=== PATIENT | female | born 1980 | race Caucasian/White ===

== ENCOUNTER 2017-10-11 10:10 | Emergency (ER) | payer MEDICAID, SELFPAY | END 2017-10-11 11:01 | disposition home or self-care (01) | LOC: ERS 10:10 | DX: H65.92 Unspecified nonsuppurative otitis media, left ear (principal) | CPT/HCPCS: 99282 ==

== ENCOUNTER 2018-05-15 13:36 | Outpatient (CLI) | payer OTHER | END 2018-05-15 13:37 | disposition home or self-care (01) | LOC: BICULT 13:36 | PROVIDERS: ATTEND Family Medicine | DX: O09.522 Supervision of elderly multigravida, second trimester (principal); Z3A.20 20 weeks gestation of pregnancy | CPT/HCPCS: 76805 ==

== ENCOUNTER 2018-08-21 07:22 | Outpatient (CLI) | payer OTHER ==
--- NOTE | 2018-08-21 09:13 | ULT ---
FOLLOWUP OB ULTRASOUND: HISTORY: Followup ultrasound to get nose and lips not seen on prior exam of 05/15/2018. FINDINGS: A single live intrauterine gestation is seen with measurements corresponding to an estimated gestatio nal age of 35 weeks 2 days and ARTHUR at 10/05/2018. The estimated weight measures 2549 gm (5 michael nds 10 ounces). measurements are as follows. BPD 8.74 cm, 35 weeks 3 days HC 32.75 cm, 37 weeks 2 days AC 31.47 cm, 35 weeks 3 days FL 6.38 cm, 33 weeks 0 days The heart rate measures 147 b.p.m. ZEN measures 16.8 cm. Placenta is posterior fundal without placenta previa. The lips and nose are visualized and appear normal. No significant abnormalities are seen. IMPRESSION: Single live intrauterine of 35 weeks 2 days, estimated gestational age and estimated date o f delivery at 10/05/2018. POS: [facility]
== END 2018-08-21 07:23 | disposition home or self-care (01) ==
LOC: BICULT 07:22
PROVIDERS: ATTEND Family Medicine
DX: O09.893 Supervision of other high risk pregnancies, third trimester (principal); Z3A.35 35 weeks gestation of pregnancy
CPT/HCPCS: 76816

== ENCOUNTER 2018-09-20 07:07 | Day surgery (SDC) | payer OTHER ==
[2018-09-20 07:40] VITALS: BP 112/78; TEMP 98.3; BMI 43.4
[2018-09-20 08:05] LABS: Amnisure Test No Membranes Rupture (No Rupture)
[2018-09-20 08:08] LABS: Amnisure Internal Control QC ACCEPTABLE (ACCEPTABLE)
--- NOTE | 2018-09-21 05:29 | PRG ---
DATE OF SERVICE: 09/20/2018 OB ER ENCOUNTER PRIMARY CLERK SPECIALIST: Dr. León Al. CHIEF COMPLAINT: Leakage of fluid. HISTORY OF PRESENT ILLNESS: The patient is a 37-year-old, G5, P4 female with an intrauterine at 38 weeks and a day, who is presenting today with a gush of fluid about 2.5 hours prior to presentation. The patient reports it was enough to soak her underclothes and pajamas. The patient denies any persistent leakage of fluid. She denies vaginal bleeding. She denies contractions. The patient is scheduled for repeat on the 27 of September. She did ask about the possibility of having a trial of labor after section. PAST MEDICAL HISTORY: Negative. PAST SURGICAL HISTORY: She has had one prior for breech presentation. MEDICATIONS: vitamins and Nexium. ALLERGIES: NO KNOWN DRUG ALLERGIES. SOCIAL HISTORY: Denies drug, alcohol, or tobacco use. OB HISTORY: She has had three prior term vaginal deliveries. LABORATORY DATA: OB labs; blood type is O positive. Antibody screen is negative. RPR is nonreactive. HIV is nonreactive. Hepatitis B surface antigen is negative. She is rubella immune. GC and chlamydia were negative. REVIEW OF SYSTEMS: Per HPI. PHYSICAL EXAMINATION: VITAL SIGNS: Blood pressure is 112/78, respiratory rate of 18, pulse of 90, and temperature 98.3. GENERAL: She appears to be in no acute distress. She is alert, oriented, cooperative, and pleasant to interact with. HEENT: Head is normocephalic and atraumatic. LUNGS: Clear to auscultation bilaterally. HEART: Regular rate and rhythm. ABDOMEN: Soft, gravid, and nontender. EXTREMITIES: Nontender with minimal edema. : Vulva is without masses, lesions, or erythema. On speculum exam, there is very little discharge present there is visible, though she does have a granular appearing discharge up closer by the cervix is visibly closed. On Valsalva, there is no evidence of leakage of fluid. heart tracing demonstrated a baseline in the 140s with moderate long-term variability, positive 15 x 15 accelerations, no decelerations. Tocometer does not show any regular contraction pattern. AmniSure test is negative. Bedside ultrasound demonstrated an ZEN of about 8.5 with a 4 cm single pocket. ASSESSMENT AND PLAN: The patient is a 37-year-old, G5, P4, female with an intrauterine at 38 weeks, who is presenting for leakage of fluid. There is no evidence of rupture of membranes at this time based on negative AmniSure test. No physical findings of persistent leakage of fluid and a normal ZEN. The patient did express interest in a trial of labor after . We did share with her the risks and benefits to a trial of labor after and shared with her that she is a good candidate to attempt this, but that she needed to have a conversation with her primary physician, Dr. Al. Again, we have provided with her a consent form to review and to take this information to her doctor for continued counseling. The patient does have an appointment with her primary OB tomorrow, but believes it is going to be with the nurse practitioner. Fetus has a reactive NST and category 1 tracing. Job ID: [id number] MTDD
== END 2018-09-20 09:17 | disposition home or self-care (01) ==
LOC: L&D/OP 07:07
PROVIDERS: ATTEND Family Medicine
DX: O99.89 Other specified diseases and conditions complicating pregnancy, childbirth and the puerperium (principal); N89.8 Other specified noninflammatory disorders of vagina; Z3A.38 38 weeks gestation of pregnancy; Z79.899 Other long term (current) drug therapy
CPT/HCPCS: 76815; 84112; 99284

== ENCOUNTER 2018-09-27 10:02 | Inpatient (IN) | payer MEDICAID, OTHER, SELFPAY ==
[2018-09-27] MEDS ORDERED: Lactated Ringer's 1,000 ML IV SCH (10:47)
[2018-09-27] MEDS ORDERED: Bicitra 30 ML UDCUP PO SCH (10:47)
[2018-09-27] MEDS ORDERED: Promethazine HCl 25 MG/ML VIAL IM PRN ×2 (10:47→12:43)
[2018-09-27] MEDS ORDERED: Ondansetron PF 4 MG/2 ML Vial IVP PRN ×3 (10:47→15:43)
[2018-09-27] MEDS ORDERED: CEFAZOLIN/Water 2 GM/20 ML SYRINGE SLOW IVP SCH (10:47)
[2018-09-27 11:09] LABS: Hemoglobin 12.3 g/dL (12.0-16.0); Mean Corpuscular HGB CONC 33.6 g/dL (32.0-36.0); Mean Corpuscular Hemoglobin 27.9 pg (27.0-31.0); Mean Platelet Volume 9.1 fL (7.4-10.4); Platelet Count 244 thou/uL (130-400); Red Blood Cell (RBC) Count 4.43 mill/uL (4.20-5.40); White Blood Cell (WBC) Count 6.8 thou/uL (4.8-10.8)
[2018-09-27] MEDS ORDERED: CEFAZOLIN 2 GM/50 ML BAG IVPB SCH (11:15)
[2018-09-27 11:17] VITALS: BMI 44.2
[2018-09-27] MEDS ORDERED: Fentanyl 100 MCG/2 ML VIAL ONE (11:33)
[2018-09-27] MEDS ORDERED: Morphine PF 1 MG/ML SYR ONE (11:33)
[2018-09-27] MEDS ORDERED: Ondansetron PF 4 MG/2 ML Vial ONE (11:33)
[2018-09-27] MEDS ORDERED: Ketorolac Tromethamine 30 MG/ML VIAL ONE (11:33)
[2018-09-27] MEDS ORDERED: Oxytocin 10 UNITS/ML VIAL ONE (11:33)
[2018-09-27 11:47] LABS: HBSAg Index 0.25 S/CO (0-0.99); Hep B Surf Ag Non-Reactive S/CO (NonReactive)
[2018-09-27 11:48] LABS: Syphilis Antibody Nonreactive (Nonreactive); Syphilis Antibody Index 0.03 S/CO (<1.00 Non-Reactive)
[2018-09-27] MEDS ORDERED: ePHEDrine/0.9% NaCl/PF SYRINGE 50 mg/10 ml ONE (12:12)
[2018-09-27] MEDS ORDERED: Naloxone HCl 0.4 mg/ml Vial IV PRN (12:43)
[2018-09-27] MEDS ORDERED: Eucerin (Mineral Oil/Petrolatum,White) 30 gm Jar TOP PRN (12:43)
[2018-09-27] MEDS ORDERED: Meperidine HCl/PF 25 MG/ML VIAL SLOW IVP PRN (12:43)
[2018-09-27] MEDS ORDERED: Promethazine HCl 25 MG SUPP PR PRN (12:43)
[2018-09-27] MEDS ORDERED: Naloxone HCl 0.4 mg/ml Vial IVP PRN ×2 (12:43)
[2018-09-27] MEDS ORDERED: HYDROmorphone 2 MG/ML VIAL SLOW IVP PRN (12:43)
[2018-09-27] MEDS ORDERED: diphenhydrAMINE 50 MG/ML VIAL IVP PRN (12:43)
[2018-09-27] MEDS ORDERED: Ondansetron HCl/PF 4 MG/2 ML Vial IVP PRN (12:43)
[2018-09-27] MEDS ORDERED: L&D-Morphine 4 MG/ML VIAL SLOW IVP PRN (12:43)
[2018-09-27] MEDS ORDERED: Communication Order-Pharmacy FS SCH (12:45)
[2018-09-27] MEDS ORDERED: Meperidine HCl/PF 25 MG/ML VIAL ONE (14:29)
[2018-09-27] MEDS ORDERED: Meperidine HCl/PF 25 MG/ML VIAL IM PRN (15:43)
[2018-09-27] MEDS ORDERED: NS / Oxytocin 40 units/1000ml 1,000 ML IV SCH (15:43)
[2018-09-27] MEDS ORDERED: Bisacodyl 10 MG SUPP PR PRN (15:43)
[2018-09-27] MEDS ORDERED: Lanolin Ointment 7 GM TUBE TOP PRN (15:43)
--- NOTE | 2018-09-27 16:51 | OP ---
DATE OF PROCEDURE: 09/27/2018 RESIDENT SURGEON: Med Tiwari DO. ATTENDING SURGEON: León Al MD. PROCEDURE PERFORMED: Repeat low-transverse section. PREOPERATIVE DIAGNOSES: 1. Term intrauterine . 2. Previous section. 3. Morbid obesity. POSTOPERATIVE DIAGNOSES: 1. Term intrauterine , delivered. 2. Status post repeat low-transverse section. 3. Morbid obesity. ANESTHESIA: Spinal. INDICATIONS FOR PROCEDURE: The patient is a 37-year-old G5, P4, now 5 female at 39 and 2 week's gestation, who presents for repeat scheduled C section. PROCEDURE IN DETAIL: After risks, benefits, and alternatives were explained to the patient, she gave informed consent. Preoperative antibiotics included 2 g of Ancef IV. The patient was taken to the operating room and spinal anesthesia was initiated. She was placed in the supine position with left lateral tilt and was prepped and draped in the usual sterile fashion. A Pfannenstiel incision was made with a scalpel and carried down to the level of the fascia, which was sharply nicked. The fascial cut was extended bilaterally with Antonio scissors. The inferior and superior edges of the cut fascial edges were elevated with Sonia clamps and underlying rectus muscles were sharply and bluntly dissected free. The recti were divided digitally and retracted manually. Peritoneum was entered bluntly and retracted manually. Bladder blade was placed. A low transverse score was made with a scalpel and the uterus was entered in the midline with the scalpel. Clear fluid was seen. Hysterotomy was extended manually. The infant was noted to be vertex and easily delivered by fundal pressure. Mouth and nares were bulb suctioned. Cord was clamped and cut and grossly normal female was handed to the awaiting nurse. Cord blood was obtained. The placenta was manually extracted, found to be intact with 3-vessel cord and discarded. The uterus was externalized and the endometrium was curetted with a dry lap. The bladder blade was replaced and the uterus was closed with a running locking 0 Vicryl suture. Following this, three [id number] sutures were placed along the hysterotomy incision with 3-0 Vicryl suture and meticulous hemostasis was noted. The abdomen was irrigated with saline and suctioned free of clots. The uterus was internalized and hysterotomy was again noted to be hemostatic. Peritoneum was closed with a running 3-0 Vicryl suture. The fascia was closed with a running nonlocking 0 PDS suture. The subcutaneous tissue was irrigated and there were no bleeders. The subcutaneous tissue was approximated with 3 simple interrupted 3-0 Vicryl sutures. The skin was then approximated with darline and a wound VAC was placed. All counts were correct. The patient tolerated the procedure well and was taken to the recovery room in stable condition. ESTIMATED BLOOD LOSS: 600 mL. COMPLICATIONS: None. SPECIMENS: Cord blood sent to the lab for blood type. FINDINGS: 1. Grossly normal female with Apgars of 8 and 9. 2. Grossly normal placenta with 3-vessel cord discarded. DRAINS: Albrecht to gravity drained clear urine. Job ID: [id number] [facility]
[2018-09-27] MEDS: Ketorolac Tromethamine 30 MG/ML VIAL IVP PRN (18:24)
[2018-09-27] MEDS: Docusate Calcium (SURFAK) 240 MG CAP PO SCH (21:40)
[2018-09-27] MEDS: Simethicone Chewable 80 MG TAB PO PRN (21:41)
[2018-09-27] MEDS: Ibuprofen 800 MG TAB PO SCH (22:14)
[2018-09-27] MEDS: Ferrous Sulfate 325 MG TAB PO SCH (22:14)
[2018-09-27] MEDS: diphenhydrAMINE 25 MG CAP PO PRN (23:29)
[2018-09-28] MEDS: Ibuprofen 800 MG TAB PO SCH ×3 (04:42→21:46)
[2018-09-28] MEDS: diphenhydrAMINE 25 MG CAP PO PRN (04:46)
[2018-09-28] MEDS: Ketorolac Tromethamine 30 MG/ML VIAL IVP PRN (04:47)
[2018-09-28 06:59] LABS: Hemoglobin 9.1 g/dL (12.0-16.0); Mean Corpuscular HGB CONC 33.7 g/dL (32.0-36.0); Mean Corpuscular Hemoglobin 28.1 pg (27.0-31.0); Mean Corpuscular Volume 83.3 fL (78.0-98.0); Mean Platelet Volume 8.1 fL (7.4-10.4); Platelet Count 183 thou/uL (130-400); RBC Distribution Width 12.9 % (11.5-14.5); Red Blood Cell (RBC) Count 3.24 mill/uL (4.20-5.40); White Blood Cell (WBC) Count 6.7 thou/uL (4.8-10.8)
[2018-09-28] MEDS: HYDROcodone/Acetaminophen 5/325 mg Tablet PO PRN ×4 (07:57→21:48)
[2018-09-28] MEDS: Prenatal Vitamin 1 TAB PO SCH (07:58)
[2018-09-28] MEDS: Docusate Calcium (SURFAK) 240 MG CAP PO SCH ×2 (07:58→21:46)
[2018-09-28] MEDS: Ferrous Sulfate 325 MG TAB PO SCH ×2 (07:58→21:46)
[2018-09-28] MEDS: Simethicone Chewable 80 MG TAB PO PRN ×2 (13:36→21:46)
[2018-09-29] MEDS: Ibuprofen 800 MG TAB PO SCH (05:08)
[2018-09-29] MEDS: Prenatal Vitamin 1 TAB PO SCH (10:01)
[2018-09-29] MEDS: Docusate Calcium (SURFAK) 240 MG CAP PO SCH (10:01)
[2018-09-29] MEDS: Ferrous Sulfate 325 MG TAB PO SCH (10:01)
[2018-09-29 10:58] VITALS: BP 140/90; TEMP 98.3
== END 2018-09-29 14:00 | disposition home or self-care (01) | DRG 788 ==
LOC: L&D 10:02 → 3SW 16:08
PROVIDERS: ADMIT Family Medicine; ATTEND Family Medicine
PROC: 10D00Z1 Extraction of Products of Conception, Low, Open Approach (ICD-10-PCS; principal; 2018-09-27)
DX: O34.211 Maternal care for low transverse scar from previous cesarean delivery (principal); O99.214 Obesity complicating childbirth; E66.9 Obesity, unspecified; Z37.0 Single live birth; Z3A.39 39 weeks gestation of pregnancy
CPT/HCPCS: 36415; 51702; 85027; 86780; 86850; 86900; 86901; 87340; J1200; J1885; J2175; J2274; J2405; J2590; J3010

== ENCOUNTER 2019-11-10 14:18 | Emergency (ER) | payer MEDICAID, SELFPAY ==
[2019-11-10] MEDS ORDERED: Ketorolac Tromethamine 30 MG/ML VIAL ONE (17:14)
[2019-11-10] MEDS ORDERED: Dexamethasone 4 mg/ml Vial ONE (17:14)
[2019-11-10] MEDS ORDERED: Metoclopramide HCl 10 MG/2 ML VIAL ONE (17:14)
== END 2019-11-10 18:29 | disposition home or self-care (01) ==
LOC: ERS 14:18
DX: G43.909 Migraine, unspecified, not intractable, without status migrainosus (principal)
CPT/HCPCS: 96365; 96375; J1100; J1885; J2765

== ENCOUNTER 2020-12-12 14:06 | Emergency (ER) | payer SELFPAY ==
[2020-12-12] MEDS ORDERED: Boostrix 0.5 ML (Tdap) VIAL ONE (14:33)
== END 2020-12-12 15:45 | disposition home or self-care (01) ==
LOC: ERS 14:06
DX: S61.204A Unspecified open wound of right ring finger without damage to nail, initial encounter (principal); W26.0XXA Contact with knife, initial encounter
CPT/HCPCS: 12001; 90471; 90715

== ENCOUNTER 2023-10-28 08:19 | Emergency (ER) | payer SELFPAY | END 2023-10-28 09:45 | disposition home or self-care (01) | LOC: ERS 08:19 | DX: J01.10 Acute frontal sinusitis, unspecified (principal); J01.00 Acute maxillary sinusitis, unspecified | CPT/HCPCS: 99283 ==